=== PATIENT | female | born 1995 | race Caucasian/White ===

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

== ENCOUNTER 2017-03-16 15:47 | Emergency (ER) | payer MEDICAID, OTHER ==
[~2017-03-16] VITALS: Ht 154.9 cm; Wt 82.0 kg
[~2017-03-16 15:47] MED LIST: CITA40TA PO; CITA40TA13 PO; MIRT15TA PO; MIRT15TA6 PO
[2017-03-16 16:24] VITALS: BP 115/76; PULSE 71; RESP 15; O2SAT 97
[2017-03-16 20:02] VITALS: BP 109/74; PULSE 69; RESP 18; O2SAT 98
--- NOTE | 2017-03-16 20:30 | ED.REPORT ---
HPI-Psychiatric Illness Date of Service Mar 16, 2017 ED Provider: Atul Sarah DO 21 y/o female with a hx of major depressive disorder, PTSD and anxiety presents to the ED with her window caser at [facility] for progressively worsening suicidal ideation with a plan of drug overdose, onset a few weeks ago. The pt stopped taking her Mirtazapine around the same time her sx began. She had mild ankle edema that has now resolved. Her window caser advised the pt to come in to the ED but the pt does not want to be admitted. Nursing Notes Stated Complaint: SUICIDAL THOUGHTS Chief Complaint: Psychiatric Complaint Nursing Notes Reviewed: Yes Allergies: Coded Allergies: No Known Allergies (Unverified , 08/27/16) Scheduled Citalopram (Citalopram) 40 Mg Tablet 40 MG PO DAILY Citalopram Hydrobromide (Celexa) 40 Mg Tablet 40 MG PO DAILY Mirtazapine (Mirtazapine) 15 Mg Tablet 15 MG PO HS Mirtazapine (Remeron) 15 Mg Tablet 15 MG PO HS General Time Seen by MD: 19:28 Chief Complaint Suicidal ideation Hx Obtained From: Patient Arrived By: Walk-in Onset Occurred: More than a week ago... (2 weeks) Symptom Duration: Since onset Progression Since Onset: Gradually worsening Severity: Current: No pain currently Severity: Maximum: No pain Recent Healthcare: Recent doctor visit Similar Sx Previous: Yes Risk-Psychiatric Illness Suicide Risk Stratification Suicide Risk Factors - Adult: : Previous attempt: Prior psych admission RF Statements: Risk factors reviewed Past Medical History Past Medical History PTSD Anxiety Previous suicide attempt self-mutilation Reports: Depression Past Surgical History none reported Smoking History Never Smoker Social History Lives in transitional housing Alcohol Use: Denies alcohol use Drug Use: Denies drug use Ambulatory Status Independent Review of Systems Constitutional: Denies: Chills Respiratory: Denies: Dyspnea on exertion Cardiovascular: Reports: Edema (mild ankle edema (resolved)) GI: Denies: Abdominal pain Skin: Denies Bruising Neurologic: Denies: Abnormal movement Psychiatric: Reports: Depression, Suicidal ideation, Denies: Agitation Complete sys rev & neg: except as marked. Physical Exam Initial Vital Signs Vital Signs (First) Date Time Temp Pulse Resp B/P Pulse Ox O2 Delivery O2 Flow Rate FiO2 03/16/17 16:24 36.9 71 15 115/76 97 Room Air Initial VS: Reviewed Head / Eyes: Atraumatic, Normocephalic Neck: Supple, Non-tender, Full range of motion Respiratory: Breath sounds normal, Clear to auscultation, No respiratory distress Cardiovascular: Regular rate & rhythm, Heart sounds normal, Intact distal pulses Abdomen / GI: Soft, Non-tender Extremities: Vascular intact, Neuro intact, No swelling, No tenderness Skin: Warm, Dry, No cyanosis General/Constitutional: Awake, Alert Neurologic: Oriented X3, Speech NL, No motor deficits, No sensory deficits Psychiatric: Not homicidal Abnormal Mood/Affect: Positive: Flat affect Abnormal Thinking / Perception: Positive: Suicidal, with plan Interpretation & Diagnostics Lab Results Interpretation Result Diagram: 03/16/17205403/16/172054 Test 03/16/17 19:52 03/16/17 20:55 03/16/17 20:56 Hold Urine Received (Received) White Blood Count 5.9th/mm3 (3.8-10.1) Red Blood Count 4.62mil/mm3 (3.90-5.20) Hemoglobin 12.3g/dL (12.0-15.6) Hematocrit 38.3% (35.0-46.0) Mean Corpuscular Volume 82.9fL (81-100) Mean Corpuscular Hemoglobin 26.6pg (27.0-35.0) Mean Corpuscular Hemoglobin Concent 32.1% (32.0-37.0) Red Cell Distribution Width 13.7% (12.3-15.4) Platelet Count 228bil/L (150-400) Neutrophils (%) (Auto) 58.3% (40-74) Lymphocytes (%) (Auto) 32.4% (14-46) Monocytes (%) (Auto) 7.6% (4-12) Eosinophils (%) (Auto) 1.0% (0-5) Basophils (%) (Auto) 0.5% (0-3) Sodium Level 137mEq/L (134-144) Potassium Level 3.8mEq/L (3.5-5.2) Chloride Level 100mEq/L (97-108) Carbon Dioxide Level 22mmol/L (18-29) Blood Urea Nitrogen 12mg/dL (6-20) Creatinine 0.72mg/dL (0.57-1.00) Estimat Glomerular Filtration Rate 149mL/min (>59) Glucose Level 96mg/dL (60-99) Calcium Level 9.6mg/dL (8.5-10.1) Total Bilirubin 0.3mg/dL (0.0-1.2) Aspartate Amino Transf (AST/SGOT) 19U/L (0-50) Alanine Aminotransferase (ALT/SGPT) 13U/L (0-32) Alkaline Phosphatase 72U/L (25-150) Total Protein 7.3g/dL (6.4-8.4) Albumin 4.1g/dL (3.4-5.0) Thyroid Stimulating Hormone (TSH) 1.770uIU/mL (0.450-4.500) Urine Color Yellow (YELLOW) Urine Appearance Clear (CLEAR,HAZY) Urine pH 5.0 (5.0-8.0) Urine Specific [place] 1.030 (1.003-1.035) Urine Protein Negativemg/dL (NEG,TRACE) Urine Glucose (UA) Negativemg/dL (NEGATIVE) Urine Ketones Tracemg/dL (NEGATIVE) Urine Occult Blood Negative (NEGATIVE) Urine Nitrite Negative (NEGATIVE) Urine Bilirubin Negative (NEGATIVE) Urine Urobilinogen Normalmg/dL (NORMAL) Urine Leukocyte Esterase Negative (NEGATIVE) Urine RBC 0-2/hpf (0-2) Urine WBC 0-5/hpf (0-5) Urine Epithelial Cells Few/hpf (NONE-MOD) Urine Crystals None seen (NONE SEEN) Urine Bacteria Few/hpf (NONE-FEW) Urine Hyaline Casts None/lpf (NONE) Urine Granular Casts None seen (NONE SEEN) Urine Waxy Casts None seen (NONE SEEN) Urine Red Blood Cell Casts None seen (NONE SEEN) Urine White Blood Cell Casts None seen (NONE SEEN) Urine Mucus Present (None Seen) Urine Trichomonas None seen (NONE SEEN) Urine Yeast None (NONE SEEN) Urinalysis Comment None Urine Culture Reflexed Not indicated Re-Eval/Medical Decision Med Decision/Clinical Course BEHAVIOR ANALYST involvement appreciated. She recommends we observe this young lady in the hospital overnight to find placement in the morning. Patient is agreeable to this. She would like to start her evening medications. Case was signed out to Dr. Griffin at 3 AM. BEHAVIOR ANALYST placement in the morning. Source of Hx: Old records Re-Evaluation/Progress : Time of Eval: 20:51 Re-Evaluation/Progress Note: As per the community mental health social worker, the pt now agrees to be admitted. Counseled Regarding: Diagnosis, Lab results, Need for admission Discharge & Departure Shift Change Sign-Out Patient Care Transferred: Yes Discussed Complaint(s): Yes Laboratory Evaluation: Back, reviewed by me Input from Consult: BEHAVIOR ANALYST consultation Impression: Primary Impression: Major depression, recurrent Active/Remission status: currently active Major depression episode severity: moderate Qualified Code: F33.1 - Major depressive disorder, recurrent, moderate Additional Impression: Suicidal thoughts Disposition: ADMITTED TO HOSPITAL Discharge Condition All VS Reviewed: Yes Referrals: [facility] Care Transferred to: Dr. Griffin. Care Transferred at: 03:00 Scribe Attestation Portions of this note were transcribed by Rajinder Wolfe. I,, personally performed the history, physical exam and medical decision-making;I reviewed and confirmed the accuracy of the information in the transcribed note. Signed by Andrea Escobedo. 03/16/17 20:54 Atul Sarah DO Mar 16, 2017 20:30 Rajinder Wolfe Mar 16, 2017 20:36
[2017-03-16 21:07] LABS: BASOPHILS % (AUTO) 0.5 % (0-3); MONOCYTES % (AUTO) 7.6 % (4-12); Mean Corpuscular Hemoglobin 26.6 pg (27.0-35.0); Mean Corpuscular Volume 82.9 fL (81-100); NEUTROPHILS % (AUTO) 58.3 % (40-74); Platelet Count 228 bil/L (150-400)
[2017-03-16 21:31] LABS: APPEARANCE,URINE CLEAR (CLEAR,HAZY); COLOR,URINE YELLOW (YELLOW); OCCULT BLOOD,URINE NEGATIVE (NEGATIVE); UROBILINOGEN,URINE NORMAL (NORMAL)
[2017-03-17 07:43] VITALS: BP 111/70; PULSE 73; RESP 20; O2SAT 98
[2017-03-17 15:27] VITALS: BP 115/74; PULSE 81; RESP 16; O2SAT 98
[2017-03-17 19:19] VITALS: BP 102/74; PULSE 70; RESP 16; O2SAT 97
[2017-03-17 21:29] VITALS: BP 111/67; PULSE 76; RESP 16; O2SAT 96
== END 2017-03-17 21:30 | disposition other institution (70) ==
LOC: SED 15:47
DX: F33.1 Major depressive disorder, recurrent, moderate (principal); R45.851 Suicidal ideations; F43.10 Post-traumatic stress disorder, unspecified; F41.9 Anxiety disorder, unspecified